=== PATIENT | male | born 1985 | race Caucasian/White ===

== ENCOUNTER → 2021-12-01 09:44 | Outpatient (CLI) | payer OTHER, SELFPAY ==
--- NOTE | ~2021-12-01 | CT_ITS ---
EXAMINATION: CT soft tissue neck w con DATE: 12/01/2021 10:19 INDICATION: Mass at the left mandible. TECHNIQUE: Computed tomography (CT) of the neck was performed with 75 mL Omnipaque-350 intravenous co ntrast. Automated exposure control and iterative reconstruction technique were employed. The dose-dorota gth product was 476.93 mGy-cm. COMPARISON: None FINDINGS: Indeterminate 1.3 cm nodule located along the left mandibular origin of the platysma. No other masses or abnormal fluid collections identified. Bilateral submandibular glands, parotid glands and lobes o f the thyroid gland are normal and symmetric. Orbits are normal. The paranasal sinuses, mastoid air c ells, middle ear cavities, visualized portions of the airway and the bilateral upper lung zones are c lear. Relatively symmetric normal sized scattered cervical lymph nodes. Visual is superior mediastinu m is unremarkable with normal caliber aortic arch with no dissection. Cervical vasculature is unremar kable. Bones are unremarkable. IMPRESSION: 1. Nonspecific 1.3 cm soft tissue density nodule along the inferior margin of the left mandible which could be a plastic, either benign or malignant or potentially complex cystic. Would consider ultraso und-guided core needle biopsy. Reviewed, dictated and finalized at location A. IMPRESSION: 1. Nonspecific 1.3 cm soft tissue density nodule along the inferior margin of t he left mandible which could be a plastic, either benign or malignant or potent ially complex cystic. Would consider ultrasound-guided core needle biopsy.
== END ==
PROVIDERS: PCP Family Medicine Adolescent Medicine; Visit Provider Family Medicine Adolescent Medicine
DX: R22.0 Localized swelling, mass and lump, head (principal)
CPT/HCPCS: 70491; Q9967

== ENCOUNTER 2021-12-25 12:46 | Outpatient (CLI) | payer OTHER, SELFPAY ==
--- NOTE | ~2021-12-25 | US_ITS ---
EXAMINATION: US biopsy st neck thorax DATE: 12/25/2021 13:47 INDICATION: 1.3 cm mass along the left mandible TECHNIQUE: The procedure including the risks, benefits, and alternatives was discussed with the patie nt. Risks discussed included bleeding and infection. The patient understood the risks and agreed to p roceed. A timeout was performed to verify the patient's name, date of , and procedure to be p erformed. The skin overlying the left mandible was prepped and draped in usual sterile fashion. Ane sthetic was administered with 1% lidocaine subcutaneously. An 18 gauge core biopsy needle was then u sed to obtain 3 core biopsy specimens of the lesion of concern under continuous sonographic guidance. The entry site was cleaned and dressed. There were no immediate complications. FINDINGS: Ultrasound images demonstrate the needle in the 1.3 cm solid hypoechoic nodule along the le ft mandible. IMPRESSION: 1. Ultrasound-guided biopsy of a 1.3 cm mass along the left mandible. Reviewed, dictated and finalized at location A.
== END 2021-12-25 12:47 | disposition home or self-care (01) ==
PROVIDERS: PCP Family Medicine Adolescent Medicine; Visit Provider Family Medicine Adolescent Medicine
DX: R22.0 Localized swelling, mass and lump, head (principal)
CPT/HCPCS: 20206; 76942; 88305; 88342

== ENCOUNTER 2023-10-14 17:06 | Emergency (ER) | payer OTHER, SELFPAY ==
[2023-10-14 17:15] VITALS: BP 129/79; PULSE 90; RESP 18; TEMP 36.8; O2SAT 99
--- NOTE | 2023-10-14 18:11 | ED.MALEGU ---
HPI - Male Genitourinary General Chief complaint: Urogenital-Male <Aureliano Cantu APRN - Last Filed: 10/14/23 18:17> Stated complaint: possibly kidney stone <Aureliano Cantu APRN - Last Filed: 10/14/23 18:17> Time Seen by Provider: 10/14/23 18:10 <Aureliano Cantu APRN - Last Filed: 10/14/23 18:17> Focused HPI: Ryan is a 38-year-old male patient presenting to the emergency room today with complaints of painful urination. He reports that this has been going on since Tuesday of last week. States he has had a fever highest of 101. He denies any flank pain but is having some suprapubic pain and pain over the urethra. He denies any concern for any sexually transmitted infections. He denies any testicle pain. No penile discharge. Denies any redness or swelling to his penis General: Well-developed, well nourished, in no apparent distress. Head: Normocephalic, atraumatic. Cardio: Regular rate and rhythm, s1 and s2 normal, no murmur appreciated. Resp: Clear to auscultation bilaterally, no rhonchi, rales, wheezing or rubs. Abdomen: Soft, pliable, bowel sounds present in all quadrants, non-tender to palpation, no organomegly, no CVAT tenderness. : Deferred Patient screened in triage and initial orders placed. Additional care and disposition to be based upon diagnostic testing and treatment. <Aureliano Cantu APRN - Last Filed: 10/14/23 18:17> Source: patient <Aureliano Cantu APRN - Last Filed: 10/14/23 18:17> Mode of arrival: ambulatory <Aureliano Cantu APRN - Last Filed: 10/14/23 18:17> Limitations: no limitations <Aureliano Cantu APRN - Last Filed: 10/14/23 18:17> Related Data Allergies/Adverse reactions: Allergies Allergy/AdvReac Type Severity Reaction Status Date / Time No Known Allergies Allergy Verified 09/14/23 11:12 <Aureliano Cantu APRN - Last Filed: 10/14/23 18:17> Review of Systems Review of Systems: All systems as dictated in HPI <Baljeet Saxena PA-C - Last Filed: 10/14/23 19:45> FOR[facility]LY [facility] Past Medical History Medical History: Medical History Anxiety <Aureliano Cantu APRN - Last Filed: 10/14/23 18:17> Family History Family History: Family History Grandparent Breast cancer Father Colon polyp Diabetes mellitus Malignant neoplasm of prostate Mother Depression <Aureliano Cantu APRN - Last Filed: 10/14/23 18:17> Social History Social History: Social History (Updated 09/14/23 @ 12:41 by Louise Cortes APRN) Smoking status: Never smoker Second hand tobacco smoke exposure: No Alcohol intake: current Alcohol use details: Occasional Substance use: never Substance use type: does not use Living arrangements: with family Additional living arrangements comments: , 3 kids 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 There is no relevant family history pertinent to the patient complaint. <Aureliano Cantu APRN - Last Filed: 10/14/23 18:17> Exam Narrative: GENERAL: Well-appearing, well-nourished, and in no acute distress. HEAD: Normocephalic, atraumatic. EYES: PERRLA and EOMI. ENT: Nares clear, no rhinorrhea or epistaxis. Mucous membranes moist. Oropharynx without tonsillar hypertrophy exudate or other lesions. NECK: Supple. No adenopathy or masses. CHEST: No respiratory distress. Clear to auscultation. No wheezes rales or rho
[2023-10-14 18:27] LABS: Basophils Absolute Auto 0.1 K/mm3 (0.0-0.1); Basophils Percent Auto 0.5 % (0.2-1.2); Eosinophils Absolute Auto 0.1 K/mm3 (0-0.3); Eosinophils Percent Auto 0.8 % (0-4.4); Hematocrit 44.6 % (42.0-52.0); Hemoglobin 14.4 g/dL (14.0-18.0); Immature Granulocyte Absolute 0.03 K/mm3 (0.00-0.031); Immature Granulocyte Percent A 0.3 % (0-0.5); Lymphocytes Absolute Auto 1.45 K/mm3 (0.9-3.2); Lymphocytes Percent Auto 13.8 % (18.3-44.2); Mean Corpuscular HGB Conc 32.3 g/dl (32-36); Mean Corpuscular Hemoglobin 28.6 pg (26-34); Mean Corpuscular Volume 88.7 fl (80-100); Mean Platelet Volume 8.9 fl (7.4-10.4); Monocytes Absolute Auto 1.1 K/mm3 (0.1-0.6); Monocytes Percent Auto 10.2 % (2.6-8.5); Neutrophils Absolute Auto 7.8 K/mm3 (1.3-6.7); Neutrophils Percent Auto 74.4 % (45.5-73.1); Platelet Count Result 279 k/mm3 (150-375); Red Blood Count 5.03 M/mm3 (4.6-6.20); Red Cell Distribution Width 12.7 % (11.5-14.5); White Blood Count 10.5 K/mm3 (4.5-10.0)
[2023-10-14 18:43] LABS: Alanine Aminotransferase 20 U/L (6-50); Albumin Level 4.7 g/dL (3.5-5.1); Alkaline Phosphatase 84 U/L (38-126); Anion Gap 8 mmol/L (4-12); Aspartate Amino Transferase 20 U/L (17-59); Bilirubin,Total 0.6 mg/dL (0.2-1.3); Blood Urea Nitrogen 12 mg/dL (9-20); Calcium 9.3 mg/dL (8.4-10.2); Carbon Dioxide 28 mmol/L (22-30); Chloride 104 mmol/L (98-107); Estimated CRCL calculation 148 ml/min; Estimated Glomerular Filt Rate > 60; Glucose 95 mg/dL (65-110); Potassium 4.1 mmol/L (3.4-5.0); Sodium 140 mmol/L (137-145)
[2023-10-14 18:53] LABS: Appearance Urine Clear (Clear); Bilirubin Urine Negative (Negative); Blood Urine Negative (Negative); Color Urine Yellow (Yellow); Glucose Urine UA Negative (Negative); Ketones Urine Trace mg/dL (Negative); Leukocyte Esterase Ur Negative LEU/UL (Negative); Nitrate Urine Negative (Negative); Protein Urine Negative (Negative); Specific Grav Ur 1.016 (1.001-1.035); Urobilinogen Urine 0.2 mg/dL (<2.0); pH Urine 6.5 (5.0-9.0)
[2023-10-14 18:58] LABS: Add Urine Microscopic? NO
== END 2023-10-14 19:49 | disposition home or self-care (01) ==
PROVIDERS: Nurse Practitioner Family; Student in an Organized Health Care Education/Training Program; Emergency Provider Physician Assistant; PCP Family Medicine Adolescent Medicine
DX: R30.0 Dysuria (principal); F41.9 Anxiety disorder, unspecified
CPT/HCPCS: 36415; 80053; 81003; 85025; 99283

== ENCOUNTER 2024-06-14 08:13 | Emergency (ER) | payer SELFPAY ==
[2024-06-14 08:32] VITALS: BP 127/89; PULSE 76; RESP 16; TEMP 35.9; O2SAT 96
--- NOTE | 2024-06-14 08:35 | ED.URI ---
HPI - URI/Sore Throat General Chief Complaint: Upper Respiratory Infection Stated Complaint: Sore Throat Time Seen by Provider: 06/14/24 08:35 Source: patient Mode of arrival: ambulatory Limitations: no limitations History of Present Illness HPI Narrative: 38-year-old male presents with complaint of sore throat for 2 days. No other symptoms. States he saw white spots in the back of his throat. All systems reviewed and negative except as noted above. Related Data Allergies Allergy/AdvReac Type Severity Reaction Status Date / Time No Known Allergies Allergy Verified 10/17/23 14:49 Review of Systems Review of Systems: CONSTITUTIONAL: Denies fever, chills, or sweats. EYES: Denies visual changes, redness, or discharge. ENT: Denies rhinorrhea, congestion. Reports sore throat. Denies otalgia. CARDIOVASCULAR: Denies chest pain, palpitations, or edema. RESPIRATORY: Denies cough or dyspnea. GASTROINTESTINAL: Denies abdominal pain, nausea, vomiting, or diarrhea. GENITOURINARY: Denies dysuria or hematuria. SKIN: Denies rash or itching. MUSCULOSKELETAL: Denies back pain, joint pain, or myalgia. NEUROLOGIC: Denies headache, numbness, or weakness. PSYCHIATRIC: Denies anxiety or depression. All other systems reviewed are negative, except as documented in HPI. 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 There is no relevant family history pertinent to the presenting complaint. Exam Narrative: GENERAL: This is a well-nourished, well-developed patient, in no apparent distress. HEAD: normocephalic, atraumatic. EYES: PERRL. Sclera clear/white. Vision is grossly intact. EARS: External ears normal, auditory canals clear and without drainage, TMs normal without perforation. Hearing grossly intact. NOSE: External nose normal with no obvious nasal discharge, nares without redness, no rhinorrhea. THROAT: Mucous membranes moist, erythematous with swelling. Tonsils 1+ bilaterally with exudates NECK: Neck supple, non-tender without lymphadenopathy, masses or thyromegaly. CARDIOVASCULAR: Regular rate and rhythm without murmurs, gallops, or rubs. RESPIRATORY: Clear to auscultation. Breath sounds equal bilaterally. No wheezes, rales, or rhonchi. SKIN: warm, Dry, intact with no suspicious lesions or rash, good texture and turgor. NEURO: awake, alert, and oriented to person, place and time. There were no obvious focal neurologic abnormalities. EXTREMITIES: No joint tenderness, effusion, or edema noted. Course Course Level of Care: Express Care Visit Vital Signs Vital signs: Vital Signs Temperature 35.9 C L 06/14/24 08:32 Pulse Rate 76 06/14/24 08:32 Respiratory Rate 16 06/14/24 08:32 Blood Pressure 127/89 06/14/24 08:32 Pulse Oximetry 96 06/14/24 08:32 Temperature 35.9 C L 06/14/24 08:32 Pulse Rate 76 06/14/24 08:32 Respiratory Rate 16 06/14/24 08:32 Blood Pressure 127/89 06/14/24 08:32 Pulse Oximetry 96 06/14/24 08:32 Reviewed MDM - URI/Sore Throat MDM Narrative Medical decision making narrative: Positive rapid strep. Will treat patient with antibiotic. Patient is alert, nontoxic. Patient is aware of diagnosis, understands and agrees to treatment plan. Anticipatory guidance given. Patient agrees to follow-up as directed and is aware of reasons to seek care at the emergency department. Portions of this record may have been created with voice recognition software Differential Diagnosis Differential diagnosis: Likely upper respiratory infection, sinusitis, viral infection, influenza and pharyngitis Lab Data Labs: Lab Results 06/14/24 Range/Units 08:37 POC Grp A Strep Screen Positive (Negative) Discharge Plan Discharge Clinical Impression: Strep throat Patient Disposition: Home, Self-Care Condition: Stable Instructions: Antibiotic Form, Strep Throat (ED) Additional Instructions: Your strep test was positive today. Take antibiotic as prescribed until gone. Change toothbrush after taking antibiotic for 24 hours. Take Tylenol or ibuprofen every 6-8 hours as needed for pain and fever. Drink at least 64 oz of water a day. Follow-up with your primary care physician if pain is not improving. Patient Language: [place] Prescriptions: New amoxicillin 500 mg capsule 500 mg PO Q12H 10 Days Qty: 20 0RF No Action escitalopram oxalate 20 mg tablet 20 mg PO DAILY Qty: 90 1RF trazodone 100 mg tablet 100 mg PO QHS Qty: 90 1RF Follow-up/Referrals: Torey Davis MD [Primary Care Provider] - Time of Disposition: 08:39
[2024-06-14 08:40] LABS: EDSTREPNEGPOS1 Positive (Negative)
== END 2024-06-14 08:44 | disposition home or self-care (01) ==
PROVIDERS: Emergency Provider Nurse Practitioner Family; PCP Family Medicine Adolescent Medicine
DX: J02.0 Streptococcal pharyngitis (principal)
CPT/HCPCS: 87880; 99213; G0463